=== PATIENT | female | born 1975 | race Hispanic/Latino ===

== ENCOUNTER 2019-07-14 05:40 | Inpatient (IN) | payer BC, OTHER ==
[~2019-07-14] VITALS: Ht 157.5 cm; Wt 80.7 kg
[2019-07-14] MEDS ORDERED: ONDANSETRON HCL 4 MG/2 ML VIAL ONE (06:14)
[2019-07-14 06:27] LABS: BASOPHILS % (AUTO) 0.2 % (0.0-5.0); HEMATOCRIT 46.2 % (36-48); LYMPHOCYTES % (AUTO) 12.8 % (21.0-51.0); MEAN CORPUSCULAR HEMOGLOBIN 26.4 pg (27.0-33.0); MEAN CORPUSCULAR HGB CONC 30.7 g/dL (32.0-36.0); MEAN CORPUSCULAR VOLUME 85.9 fL (79-99); MONOCYTES % (AUTO) 3.2 % (3.0-13.0); NEUTROPHILS % (AUTO) 83.3 % (40.0-77.0); PLATELET COUNT (AUTO) 312 K/uL (130-400); RED BLOOD CELL COUNT(AUTO) 5.38 MIL/uL (4.00-5.50); RED CELL DISTRIBUTION WIDTH 13.9 % (11.0-15.5); WHITE BLOOD COUNT (AUTO) 16.5 K/uL (4.8-10.8)
[2019-07-14 06:35] LABS: APPEARANCE,URINE Clear (CLEAR); BILIRUBIN,URINE Negative (NEGATIVE); COLOR,URINE Yellow (YELLOW); GLUCOSE, URINE (UA) >=1000 mg/dL (NEGATIVE); KETONES,URINE >=160 mg/dL (NEGATIVE); LEUKOCYTE ESTERASE ,URINE Negative (NEGATIVE); NITRATE,URINE Negative (NEGATIVE); OCCULT BLOOD,URINE Negative (NEGATIVE); PROTEIN,URINE POS 2+ mg/dL (NEGATIVE); UROBILINOGEN,URINE 0.2 mg/dL (0.2-1.0)
[2019-07-14] MEDS ORDERED: FAMOTIDINE/PF 20 MG/2 ML VIAL IV ONE (06:38)
[2019-07-14 06:39] LABS: AMPHET/METH SCREEN,URINE NEGATIVE (NEGATIVE); BARBITURATE SCREEN, URINE NEGATIVE (NEGATIVE); BENZODIAZEPINES SCREEN,URINE NEGATIVE (NEGATIVE); CANNABINOID SCREEN,URINE NEGATIVE (NEGATIVE); COCAINE SCREEN,URINE NEGATIVE (NEGATIVE); OPIATE SCREEN,URINE NEGATIVE (NEGATIVE); PHENCYCLIDINE SCREEN,URINE NEGATIVE (NEGATIVE)
[2019-07-14 06:46] LABS: INR 0.94 (0.85-1.15); PARTIAL THROMBOPLASTIN TIME 27.1 SEC (26.3-35.5); PROTHROMBIN TIME 10.2 SEC (9.6-11.6)
[2019-07-14] MEDS ORDERED: INSULIN HUMULIN R 100 UNIT/ML 3ML ONE ×2 (06:48→07:30)
[2019-07-14 06:52] LABS: CREATININE 1.5 mg/dL (0.5-1.5); POTASSIUM 4.2 mmol/L (3.5-5.1)
[2019-07-14 06:58] LABS: ALBUMIN 4.9 g/dL (3.5-5.0); BILIRUBIN,TOTAL 0.5 mg/dL (0.2-1.0); TOTAL PROTEIN, SERUM 9.2 g/dL (6.0-8.3)
[2019-07-14 07:34] LABS: BACTERIA,URINE Rare /HPF (None Seen); MUCUS,URINE Rare LPF (None Seen); RBC,URINE 0-1 /HPF (0-1); SQUAMOUS EPITHELIAL CELL,UR Rare /HPF (0-2); WBC,URINE 0-1 /HPF (0-1)
[2019-07-14] MEDS ORDERED: SODIUM BICARB 50MEQ 50ML VIAL ONE (07:34)
[2019-07-14] MEDS ORDERED: DEXTROSE 5 %-0.45 % NACL 1,000 ML IV ONE ×2 (07:50→14:04)
[2019-07-14 07:53] LABS: ABG BASE EXCESS -19.3 mmol/L (-2.0-3.0); ABG HCO3 7.3 mmol/L (21.0-28.0); ABG OXYGEN SATURATION 97.3 % (95.0-99.0); ABG PCO2 21 mmHg (32-45)
[2019-07-14] MEDS ORDERED: SODIUM CHLORIDE 0.9% 1000ML 1,000 ML IV SCH (11:10)
[2019-07-14] MEDS: SODIUM CHLORIDE 0.9% 1000ML 1,000 ML IV SCH ×3 (11:10→21:10)
[2019-07-14] MEDS ORDERED: GLUCAGON 1MG KIT 1 MG ML IM PRN (11:15)
[2019-07-14] MEDS ORDERED: DEXTROSE 50%-WATER 50 ML DISP.SYRIN IV PRN (11:15)
[2019-07-14] MEDS ORDERED: MORPHINE SULFATE 2 MG/ML 1ML SYG IV PRN (11:15)
[2019-07-14] MEDS ORDERED: INSULIN REGULAR, HUMAN 3ML 100 UNIT in SODIUM CHLORIDE 0.9% 99 ML IV PRN ×2 (11:15)
[2019-07-14] MEDS: INSULIN HUMULIN R 100 UNIT/ML 3ML IV SCH (11:15)
[2019-07-14] MEDS ORDERED: HYDRALAZINE HCL 20 MG/ML VIAL IV PRN (11:15)
[2019-07-14] MEDS ORDERED: MAGNESIUM 2GM PREMIX 50ML 50 ML IV PRN (11:15)
[2019-07-14] MEDS: INSULIN HUMULIN R 100 UNIT/ML 3ML SQ SCH ×3 (11:30→21:00)
[2019-07-14 12:02] LABS: ABG BASE EXCESS -12.2 mmol/L (-2.0-3.0); ABG HCO3 12.1 mmol/L (21.0-28.0); ABG OXYGEN SATURATION 97.5 % (95.0-99.0); ABG PCO2 25 mmHg (32-45)
[2019-07-14 12:19] LABS: CREATININE 0.8 mg/dL (0.5-1.5); MAGNESIUM 1.7 mg/dL (1.80-2.40); POTASSIUM 3.8 mmol/L (3.5-5.1)
[2019-07-14] MEDS ORDERED: MAGNESIUM 2GM PREMIX 50ML 50 ML IV ONE (12:27)
[2019-07-14] MEDS ORDERED: ONDANSETRON HCL 4 MG/2 ML VIAL IVP PRN (13:45)
--- NOTE | 2019-07-14 16:06 | NUR ---
DCP: HOME met with pt who lives with her Jovani Azevedo [phone]. Pt reports she is independent of all ADLS, no DME or in home care services. PCP is Umesh Rivero [facility] Pt denies dc needs. Plan is home at mo. CM to follow and assist as needed Addendum: 07/14/19 at 1609 by VITO LOPEZ Amended: Links added.
[2019-07-14] MEDS ORDERED: METF-910 PO (17:04)
[2019-07-14] MEDS ORDERED: ATOR20TA65 PO (17:04)
[2019-07-14] MEDS ORDERED: CANA300T PO (17:04)
[2019-07-14] MEDS ORDERED: ONDA4TAB10 PO (17:04)
[2019-07-14 17:22] LABS: ABG BASE EXCESS -9.4 mmol/L (-2.0-3.0); ABG HCO3 14.7 mmol/L (21.0-28.0); ABG OXYGEN SATURATION 97.5 % (95.0-99.0); ABG PCO2 28 mmHg (32-45)
[2019-07-14 17:56] LABS: CREATININE 0.7 mg/dL (0.5-1.5); MAGNESIUM 2.2 mg/dL (1.80-2.40); POTASSIUM 3.5 mmol/L (3.5-5.1)
[2019-07-14] MEDS: FAMOTIDINE 20MG TAB 20 MG TAB PO SCH (21:00)
[2019-07-14 22:33] VITALS: BP 111/57
[2019-07-14 22:48] VITALS: BP 123/70
[2019-07-14 23:15] VITALS: BP 121/68
[2019-07-14 23:23] LABS: ABG BASE EXCESS -9.3 mmol/L (-2.0-3.0); ABG HCO3 15.8 mmol/L (21.0-28.0); ABG OXYGEN SATURATION 96.4 % (95.0-99.0); ABG PCO2 33 mmHg (32-45)
[2019-07-14 23:30] VITALS: BP 131/73
[2019-07-14 23:45] VITALS: BP 127/65
[2019-07-14] MEDS: DEXTROSE 5 %-0.45 % NACL 1,000 ML IV PRN (23:56)
[2019-07-15] VITALS (19 sets, daily range): BP systolic 97–166; BP diastolic 33–77
[2019-07-15 00:45] LABS: CREATININE 0.7 mg/dL (0.5-1.5); POTASSIUM 3.1 mmol/L (3.5-5.1)
[2019-07-15] MEDS: POTASSIUM CHLORIDE 10MEQ/100ML 100 ML IV PRN ×2 (00:59→02:37)
[2019-07-15] MEDS: SODIUM CHLORIDE 0.9% 1000ML 1,000 ML IV SCH ×4 (02:10→16:17)
[2019-07-15] MEDS: DEXTROSE 5 %-0.45 % NACL 1,000 ML IV PRN (02:47)
[2019-07-15 05:10] LABS: ABG BASE EXCESS -7.3 mmol/L (-2.0-3.0); ABG HCO3 16.7 mmol/L (21.0-28.0); ABG PCO2 30 mmHg (32-45)
[2019-07-15 06:07] LABS: BASOPHILS % (AUTO) 0.3 % (0.0-5.0); EOSINOPHILS % (AUTO) 0.3 % (0.0-8.0); HEMATOCRIT 33.7 % (36-48); LYMPHOCYTES % (AUTO) 25.1 % (21.0-51.0); MEAN CORPUSCULAR HEMOGLOBIN 27.1 pg (27.0-33.0); MEAN CORPUSCULAR VOLUME 84.7 fL (79-99); MONOCYTES % (AUTO) 7.3 % (3.0-13.0); NEUTROPHILS % (AUTO) 66.7 % (40.0-77.0); PLATELET COUNT (AUTO) 196 K/uL (130-400); RED BLOOD CELL COUNT(AUTO) 3.98 MIL/uL (4.00-5.50); RED CELL DISTRIBUTION WIDTH 13.6 % (11.0-15.5)
[2019-07-15 06:40] LABS: ALBUMIN 3.2 g/dL (3.5-5.0); BILIRUBIN,TOTAL 0.3 mg/dL (0.2-1.0); CREATININE 0.6 mg/dL (0.5-1.5); POTASSIUM 3.4 mmol/L (3.5-5.1); THYROID STIMULATING HORMONE 2.75 uIU/mL (0.36-3.74)
[2019-07-15] MEDS: INSULIN HUMULIN R 100 UNIT/ML 3ML SQ SCH ×4 (07:30→20:15)
[2019-07-15] MEDS: ENOXAPARIN SODIUM 40 MG/0.4 ML SYRINGE SQ SCH ×2 (09:00→09:04)
[2019-07-15] MEDS: FAMOTIDINE 20MG TAB 20 MG TAB PO SCH ×2 (09:04→19:51)
[2019-07-15] MEDS: INSULIN HUMULIN R 100 UNIT/ML 3ML IV SCH (11:15)
[2019-07-15] MEDS ORDERED: INSULIN GLARGINE 100 UNITS/ML 10 ML VIAL SQ SCH (12:30)
[2019-07-15] MEDS: LACTATED RINGERS 1000ML 1,000 ML IV SCH (14:50)
[2019-07-15] MEDS ORDERED: POTASSIUM CHLORIDE 20 MEQ ERTAB PO ONE (16:54)
[2019-07-15] MEDS ORDERED: POTASSIUM CHLORIDE 10% ELIXIR 20 MEQ/15 ML UDCUP PO PRN (17:00)
[2019-07-15] MEDS ORDERED: POTASSIUM CHLORIDE 20 MEQ ERTAB PO PRN (17:00)
[2019-07-15] MEDS ORDERED: LIDOCAINE HCL-MPF 1% 2ML VIAL IV PRN (17:00)
[2019-07-15] MEDS ORDERED: POTASSIUM CHLORIDE 20MEQ/100ML 100 ML IV PRN (17:00)
--- NOTE | 2019-07-15 17:10 | NUR ---
REPORT GIVEN TO MED SURG NURSE CRISTOBAL, AND PATIENT TRANSFERRED TO ROOM 318; PATIENT STATES NO COMPLAINTS AT THIS TIME
[2019-07-15] MEDS ORDERED: ZOLPIDEM TARTRATE 5 MG TAB PO PRN (18:00)
[2019-07-15] MEDS: ACETAMINOPHEN-CODEINE 300/30MG TAB PO PRN (21:20)
[2019-07-16] MEDS: LACTATED RINGERS 1000ML 1,000 ML IV SCH ×2 (00:15→11:04)
[2019-07-16 04:00] VITALS: BP 120/71
[2019-07-16 05:42] LABS: HEMATOCRIT 33.8 % (36-48); MEAN CORPUSCULAR HEMOGLOBIN 26.6 pg (27.0-33.0); MEAN CORPUSCULAR HGB CONC 31.4 g/dL (32.0-36.0); MEAN CORPUSCULAR VOLUME 84.7 fL (79-99); RED BLOOD CELL COUNT(AUTO) 3.99 MIL/uL (4.00-5.50); RED CELL DISTRIBUTION WIDTH 14.1 % (11.0-15.5); WHITE BLOOD COUNT (AUTO) 5.9 K/uL (4.8-10.8)
[2019-07-16] MEDS: INSULIN HUMULIN R 100 UNIT/ML 3ML SQ SCH ×2 (06:00→11:30)
[2019-07-16 06:02] LABS: CREATININE 0.5 mg/dL (0.5-1.5); MAGNESIUM 1.9 mg/dL (1.80-2.40); PHOSPHORUS 2.6 mg/dL (2.5-4.9); POTASSIUM 3.8 mmol/L (3.5-5.1)
[2019-07-16] MEDS: ACETAMINOPHEN-CODEINE 300/30MG TAB PO PRN (08:14)
[2019-07-16] MEDS: FAMOTIDINE 20MG TAB 20 MG TAB PO SCH (08:14)
[2019-07-16 08:16] VITALS: BP 125/72
[2019-07-16] MEDS: ENOXAPARIN SODIUM 40 MG/0.4 ML SYRINGE SQ SCH (08:21)
[2019-07-16] MEDS ORDERED: INSULIN GLARGINE 100 UNITS/ML 10 ML VIAL SQ SCH (09:00)
[2019-07-16] MEDS: INSULIN HUMULIN R 100 UNIT/ML 3ML IV SCH (11:15)
[2019-07-16 11:34] VITALS: BP 117/58
--- NOTE | 2019-07-16 13:35 | NUR ---
NUTRITION EDUCATION BIRGIT provided Diabetes Nutrition Education. BIRGIT reviewed reference materials and handouts with Pt and answered Pt questions. Pt verbalized understanding. Addendum: 07/16/19 at [address] Amended: Links added.
[2019-07-16] MEDS ORDERED: INSLAN SQ (14:44)
--- NOTE | 2019-07-16 15:30 | NUR ---
DISCHARGE PATIENT GIVEN DISCHARGE INSTRUCTIONS AND EDUCATION ON FOLLOW UP APPOINTMENTS, AND NEW PRESCRIBED MEDICATIONS. PATIENT VERBALIZED UNDERSTANDING OF ALL EDUCATION GIVEN VIA TEACH BACK. IV DISCONTINUED, CATHETER INTACT. NO DISTRESS NOTED UPON DISCHARGE. ALL BELONGINGS TAKEN WITH. PATIENT LEFT VIA WHEELCHAIR, PCP AT SIDE, FAMILY WAITING OUTSIDE ER.
== END 2019-07-16 15:50 | disposition home or self-care (01) | DRG 639 ==
LOC: EDH 05:40 → EDHIP 08:43 → DAHIP 22:12 → 3CH 07-15 17:02
PROVIDERS: ADMIT Internal Medicine Critical Care Medicine; ATTEND Internal Medicine Critical Care Medicine
DX: E11.10 Type 2 diabetes mellitus with ketoacidosis without coma (principal); D72.829 Elevated white blood cell count, unspecified; E66.9 Obesity, unspecified; E78.5 Hyperlipidemia, unspecified; I10 Essential (primary) hypertension; R63.4 Abnormal weight loss; Z68.32 Body mass index [BMI] 32.0-32.9, adult; Z79.84 Long term (current) use of oral hypoglycemic drugs
CPT/HCPCS: 36415; 36600; 76705; 80048; 80053; 80305; 81001; 81025; 82010; 82150; 82550; 82803; 82948; 83690; 83735; 83930; 84100; 84439; 84443; 84480; 84484; 85025; 85027; 85610; 85730; 93005; 99291; G0378; J1650; J1815; J2405; J3475; J3490; J7042; J7120

== ENCOUNTER 2020-06-11 10:51 | Emergency (ER) | payer BC ==
[~2020-06-11 10:51] MED LIST: ATOR20TA65 PO; METF-910 PO; ONDA4TAB10 PO
[2020-06-11 11:17] LABS: BASOPHILS % (AUTO) 0.5 % (0.0-5.0); EOSINOPHILS % (AUTO) 0.4 % (0.0-8.0); HEMATOCRIT 34.3 % (36-48); LYMPHOCYTES % (AUTO) 26.7 % (21.0-51.0); MEAN CORPUSCULAR HEMOGLOBIN 26.5 pg (27.0-33.0); MEAN CORPUSCULAR HGB CONC 33.2 g/dL (32.0-36.0); MEAN CORPUSCULAR VOLUME 79.8 fL (79-99); MONOCYTES % (AUTO) 5.1 % (3.0-13.0); PLATELET COUNT (AUTO) 266 K/uL (130-400); RED CELL DISTRIBUTION WIDTH 14.8 % (11.0-15.5); WHITE BLOOD COUNT (AUTO) 9.8 K/uL (4.8-10.8)
[2020-06-11 11:32] LABS: ALBUMIN 3.7 g/dL (3.5-5.0); BILIRUBIN,TOTAL 0.1 mg/dL (0.2-1.0); CREATININE 0.8 mg/dL (0.5-1.5); POTASSIUM 4.2 mmol/L (3.5-5.1); TOTAL PROTEIN, SERUM 7.2 g/dL (6.0-8.3)
[2020-06-11] MEDS ORDERED: ACETAMINOPHEN EXTRA STRENGTH 500 MG TABLET ONE (11:55)
[2020-06-11] MEDS ORDERED: INSULIN HUMULIN R 100 UNIT/ML 3ML ONE (11:55)
[2020-06-11] MEDS ORDERED: SODIUM CHLORIDE 0.9% 1000ML 1,000 ML IV ONE (11:56)
== END 2020-06-11 15:09 | disposition home or self-care (01) ==
LOC: EDH 10:51
DX: B34.9 Viral infection, unspecified (principal); R50.81 Fever presenting with conditions classified elsewhere; E11.9 Type 2 diabetes mellitus without complications; Z87.891 Personal history of nicotine dependence; Z98.890 Other specified postprocedural states
CPT/HCPCS: 36415; 71045; 80053; 82550; 82948; 83690; 84484 ×2; 85025; 85378; 93005 ×2; 96361; 96374; 99285; J1815; J7030

== ENCOUNTER 2021-09-22 15:23 | Emergency (ER) | payer BC ==
[~2021-09-22] VITALS: Ht 157.5 cm; Wt 74.8 kg
[2021-09-22 16:20] VITALS: BP 120/67
[2021-09-22] MEDS ORDERED: ACETAMINOPHEN 500 MG TABLET PO ONE (17:00)
[2021-09-22] MEDS ORDERED: GUAIFENESIN-DM 200/20 MG 10 ML PO ONE (17:00)
[2021-09-22] MEDS ORDERED: IBUP-2070 PO (17:11)
[2021-09-22] MEDS ORDERED: ACET-66 PO (17:11)
[2021-09-22] MEDS ORDERED: GUAIF10 PO (17:11)
[2021-09-22] MEDS ORDERED: AZIT500T2 PO (17:11)
== END 2021-09-22 18:14 | disposition home or self-care (01) ==
LOC: EDH 15:23
DX: U07.1 COVID-19 (principal); M79.7 Fibromyalgia; E11.9 Type 2 diabetes mellitus without complications; F41.9 Anxiety disorder, unspecified; F32.A Depression, unspecified
CPT/HCPCS: 99283; 87635; 87880; 87804 ×2; C9803